=== PATIENT | male | born 1995 | race African-American/Black ===

== ENCOUNTER 2018-01-15 18:16 | Emergency (ER) | payer MEDICAID ==
[~2018-01-15] VITALS: Ht 193 cm; Wt 102.1 kg
[2018-01-15 18:16] VITALS: BP 152/80
[~2018-01-15 18:16] MED LIST: ALBUTEROL0.09 MG/A2 IH; AMOXICILLIN500 M2 PO; AMOXICILLIN500 MG PO; BACTRIM DS 8001 TA1 PO; CEPHALEXIN500 M1 PO; HYDROCODONE BIT1 T11 PO; Motrin,Rufen800 MG PO; NAPROSYN500 MG PO; PENICILLIN VK500 MG PO; PERCOCET 325 MG1 TA2 PO; TYLENOL W/CODEI1 TA2 PO; ZITHROMAX Z PA250 MG PO; ZYRTEC10 MG PO
== END 2018-01-15 20:40 | disposition home or self-care (01) ==
LOC: ED 18:16
DX: S93.402A Sprain of unspecified ligament of left ankle, initial encounter (principal); X50.1XXA Overexertion from prolonged static or awkward postures, initial encounter; Y93.89 Activity, other specified; Y92.89 Other specified places as the place of occurrence of the external cause; Y99.9 Unspecified external cause status

== ENCOUNTER 2018-07-02 14:08 | Emergency (ER) | payer SELFPAY ==
[~2018-07-02] VITALS: Ht 190.5 cm; Wt 99.8 kg
[2018-07-02 14:09] VITALS: BP 136/83
[2018-07-02] MEDS ORDERED: NAPROSYN500 MG PO (14:13)
[2018-07-02] MEDS ORDERED: CHLORZOXAZONE500 M2 PO (14:13)
[2018-07-02] MEDS ORDERED: FLONASE ALLERG9.9 ML NAS (14:52)
[2018-07-02] MEDS ORDERED: PREDNISONE10 MG PO (14:52)
[2018-07-02] MEDS ORDERED: CLARITIN10 MG PO (14:52)
[2018-07-02] MEDS ORDERED: PROAIR HFA8.5 GM INH (14:52)
== END 2018-07-02 16:10 | disposition home or self-care (01) ==
LOC: ED 14:08
DX: J20.9 Acute bronchitis, unspecified (principal); R03.0 Elevated blood-pressure reading, without diagnosis of hypertension; F17.200 Nicotine dependence, unspecified, uncomplicated

== ENCOUNTER 2019-08-06 21:27 | Emergency (ER) | payer SELFPAY ==
[~2019-08-06] VITALS: Ht 193 cm; Wt 108.9 kg
[~2019-08-06 21:27] MED LIST changes: +CHLORZOXAZONE500 M2 PO; +CLARITIN10 MG PO; +FLONASE ALLERG9.9 ML NAS; +PREDNISONE10 MG PO; +PROAIR HFA8.5 GM INH
[2019-08-06 21:30] VITALS: BP 119/70
[2019-08-06] MEDS ORDERED: CEPHALEXIN500 M1 PO (22:22)
[2019-08-06] MEDS ORDERED: Bactroban Oint22 GM T (22:22)
== END 2019-08-06 22:30 | disposition home or self-care (01) ==
LOC: ED 21:27
DX: T20.06XA Burn of unspecified degree of forehead and cheek, initial encounter (principal); L70.0 Acne vulgaris; J45.909 Unspecified asthma, uncomplicated; F17.200 Nicotine dependence, unspecified, uncomplicated; X19.XXXA Contact with other heat and hot substances, initial encounter; Y93.89 Activity, other specified; Y92.098 Other place in other non-institutional residence as the place of occurrence of the external cause; Y99.8 Other external cause status

== ENCOUNTER 2019-10-16 16:47 | Emergency (ER) | payer SELFPAY ==
[~2019-10-16] VITALS: Ht 193 cm; Wt 108.9 kg
[~2019-10-16 16:47] MED LIST changes: +Bactroban Oint22 GM T
[2019-10-16 17:04] VITALS: BP 126/64
== END 2019-10-16 18:53 | disposition home or self-care (01) ==
LOC: ED 16:47
DX: R50.9 Fever, unspecified (principal); J45.909 Unspecified asthma, uncomplicated; Z53.21 Procedure and treatment not carried out due to patient leaving prior to being seen by health care provider

== ENCOUNTER 2019-10-17 16:50 | Emergency (ER) | payer SELFPAY ==
[~2019-10-17] VITALS: Ht 193 cm; Wt 108.9 kg
== END 2019-10-17 18:46 | disposition home or self-care (01) ==
LOC: ED 16:50
DX: J06.9 Acute upper respiratory infection, unspecified (principal); R05 Cough; R19.7 Diarrhea, unspecified; J45.909 Unspecified asthma, uncomplicated; F17.200 Nicotine dependence, unspecified, uncomplicated; Z79.899 Other long term (current) drug therapy

== ENCOUNTER 2020-01-21 00:18 | Emergency (ER) | payer SELFPAY ==
[~2020-01-21] VITALS: Ht 193 cm; Wt 113.4 kg
[2020-01-21 00:32] VITALS: BP 130/91
[2020-01-21] MEDS ORDERED: Motrin,Rufen800 MG PO (02:31)
== END 2020-01-21 03:11 | disposition home or self-care (01) ==
LOC: ED 00:18
DX: S56.311A Strain of extensor or abductor muscles, fascia and tendons of right thumb at forearm level, initial encounter (principal); J45.909 Unspecified asthma, uncomplicated; F17.200 Nicotine dependence, unspecified, uncomplicated; Z79.899 Other long term (current) drug therapy; X58.XXXA Exposure to other specified factors, initial encounter; Y93.89 Activity, other specified; Y92.89 Other specified places as the place of occurrence of the external cause; Y99.8 Other external cause status

== ENCOUNTER 2020-09-11 11:03 | Emergency (ER) | payer SELFPAY ==
[~2020-09-11] VITALS: Ht 190.5 cm; Wt 108.9 kg
[2020-09-11 11:08] VITALS: BP 138/77
[2020-09-11] MEDS ORDERED: IBUPROFEN600 MG PO (11:22)
[2020-09-11] MEDS ORDERED: CEPHALEXIN500 M1 PO (11:22)
[2020-09-11] MEDS ORDERED: NORCO 5-325 TA1 EACH PO (11:52)
== END 2020-09-11 12:51 | disposition home or self-care (01) ==
LOC: ED 11:03
DX: S62.636B Displaced fracture of distal phalanx of right little finger, initial encounter for open fracture (principal); W31.89XA Contact with other specified machinery, initial encounter; Y93.89 Activity, other specified; Y92.89 Other specified places as the place of occurrence of the external cause; Y99.8 Other external cause status

== ENCOUNTER 2021-03-06 21:22 | Emergency (ER) | payer SELFPAY ==
[~2021-03-06] VITALS: Ht 190.5 cm; Wt 108.9 kg
[~2021-03-06 21:22] MED LIST changes: +IBUPROFEN600 MG PO; +NORCO 5-325 TA1 EACH PO
[2021-03-06 21:34] VITALS: BP 128/77
== END 2021-03-06 23:46 | disposition home or self-care (01) ==
LOC: ED 21:22
DX: T78.40XA Allergy, unspecified, initial encounter (principal); Z79.899 Other long term (current) drug therapy; X58.XXXA Exposure to other specified factors, initial encounter

== ENCOUNTER 2021-05-06 10:17 | Emergency (ER) | payer SELFPAY ==
[~2021-05-06] VITALS: Ht 187.9 cm; Wt 108.9 kg
[2021-05-06 10:45] VITALS: BP 138/83
[2021-05-06] MEDS ORDERED: PREDNISONE10 MG PO (12:00)
== END 2021-05-06 12:03 | disposition home or self-care (01) ==
LOC: ED 10:17
DX: J45.901 Unspecified asthma with (acute) exacerbation (principal); F17.200 Nicotine dependence, unspecified, uncomplicated; Z79.899 Other long term (current) drug therapy; Z79.2 Long term (current) use of antibiotics

== ENCOUNTER → 2021-06-03 | Outpatient (CLI) | payer OTHER | END | disposition home or self-care (01) | LOC: RAD 11:35 | PROVIDERS: ATTEND Family Medicine | DX: S13.4XXA Sprain of ligaments of cervical spine, initial encounter (principal); S23.41XA Sprain of ribs, initial encounter; S03.8XXA Sprain of joints and ligaments of other parts of head, initial encounter; X58.XXXA Exposure to other specified factors, initial encounter; Y93.89 Activity, other specified; Y92.89 Other specified places as the place of occurrence of the external cause; Y99.8 Other external cause status ==

== ENCOUNTER 2022-06-16 20:42 | Emergency (ER) | payer SELFPAY ==
[~2022-06-16] VITALS: Ht 190.5 cm; Wt 113.4 kg
[2022-06-16 21:12] VITALS: BP 142/73
[2022-06-16] MEDS ORDERED: AMOXICILLIN500 M2 PO (22:13)
== END 2022-06-16 22:30 | disposition home or self-care (01) ==
LOC: ED 20:42
DX: K04.7 Periapical abscess without sinus (principal); K03.81 Cracked tooth

== ENCOUNTER 2023-03-23 13:23 | Emergency (ER) | payer SELFPAY ==
[~2023-03-23] VITALS: Ht 190.5 cm; Wt 106.6 kg
[2023-03-23 13:34] VITALS: BP 119/66
[2023-03-23] MEDS ORDERED: MEDROL DOSEPAK4 MG PO (17:53)
[2023-03-23] MEDS ORDERED: CYCLOBENZAPRINE10 MG PO (17:53)
== END 2023-03-23 18:03 | disposition home or self-care (01) ==
LOC: ED 13:23
DX: S23.3XXA Sprain of ligaments of thoracic spine, initial encounter (principal); J45.909 Unspecified asthma, uncomplicated; W51.XXXA Accidental striking against or bumped into by another person, initial encounter; Y93.89 Activity, other specified; Y92.89 Other specified places as the place of occurrence of the external cause; Y99.8 Other external cause status